=== PATIENT | female | born 1970 ===

== ENCOUNTER 2017-06-04 13:30 | Observation (INO) | payer MEDICAID ==
--- NOTE | 2017-06-04 15:38 | C.PDOC ---
History Of Present Illness 46 year old female presents to the ED for evaluation of dizziness which began around 4 days ago. Patient states the dizziness is worse with movement and is associated with headache, nausea, and vomiting. Patient underwent brain surgery 2 years ago because she had a cyst. Patient denies fever, chills, abdominal pain. Time Seen by Provider: 06/04/17 14:47 Chief Complaint (Nursing): Dizziness/Lightheaded History Per: Patient History/Exam Limitations: no limitations Onset/Duration Of Symptoms: Days (4) Additional History Per: Patient Past Medical History Reviewed: Historical Data, Nursing Documentation, Vital Signs Vital Signs: Last Vital Signs Temp 98.2 F 06/05/17 07:25 Pulse 65 06/05/17 07:25 Resp 18 06/05/17 07:25 BP 95/62 L 06/05/17 07:25 Pulse Ox 97 06/05/17 07:25 - Medical History PMH: Depression, Hyperthyroidism Surgical History: No Surg Hx Family History: States: Unknown Family Hx - Social History Hx Alcohol Use: No Hx Substance Use: No - Immunization History Hx Tetanus Toxoid Vaccination: Yes Hx Influenza Vaccination: Yes Hx Pneumococcal Vaccination: No Review Of Systems Constitutional: Negative for: Fever, Chills Gastrointestinal: Positive for: Nausea, Vomiting. Negative for: Abdominal Pain Neurological: Positive for: Headache, Dizziness Physical Exam - Physical Exam Appears: Non-toxic, No Acute Distress Skin: Normal Color, Warm, Dry Head: Atraumatic, Normacephalic Eye(s): bilateral: Normal Inspection, PERRL, EOMI Oral Mucosa: Moist Neck: Supple Chest: Symmetrical, No Deformity, No Tenderness Cardiovascular: Rhythm Regular, No Murmur Respiratory: Normal Breath Sounds, No Rales, No Rhonchi, No Wheezing Extremity: Normal ROM, Capillary Refill (less than 2 seconds ) Neurological/Psych: Oriented x3, Normal Speech, Normal Cognition ED Course And Treatment - Laboratory Results Result Diagrams: 06/05/17 10:45 06/05/17 10:45 ECG: Interpreted By Me, Viewed By Me ECG Rhythm: Sinus Rhythm Interpretation Of ECG: Normal Sinus Rhythm at rate 60 bpm. Normal intervals. Normal axis. No ST/T wave abnormalities. Rate From EC O2 Sat by Pulse Oximetry: 100 (on RA) Pulse Ox Interpretation: Normal Medical Decision Making Medical Decision Making: Assessment: dizziness Progress: EKG ordered and reviewed. patient remained dizzy after medications. Discussed with pmd and will admit to hospital observation unit. Disposition Discussed With Dr.: Abdelrahman Osullivan Doctor Will See Patient In The: Hospital Counseled Patient/Family Regarding: Studies Performed, Diagnosis - Disposition Disposition: HOSPITALIZED Disposition Time: 19:00 Condition: FAIR - Clinical Impression Clinical Impression: Dizziness - Scribe Statement The provider has reviewed the documentation as recorded by the Scribe (Vicenta Olivas) Provider Attestation: All medical record entries made by the Scribe were at my direction and personally dictated by me. I have reviewed the chart and agree that the record accurately reflects my personal performance of the history, physical exam, medical decision making, and the department course for this patient. I have also personally directed, reviewed, and agree with the discharge instructions and disposition.
[2017-06-04] MEDS ORDERED: Sodium Chloride 0.9% 1,000 ML IV ONE (15:46)
[2017-06-04] MEDS ORDERED: Sodium Chloride 0.9% 1,000 ML ONE (16:02)
[2017-06-04 16:18] LABS: BASO % 0.5 % (0.0-2.0); EOS % 0.5 % (0.0-4.0); HEMOGLOBIN 13.6 g/dL (11.0-16.0); LYMPH # 2.5 K/uL (1.0-4.3); LYMPH % 36.4 % (20.0-40.0); MEAN CELL VOLUME 88.9 fL (81.0-99.0); MEAN CORPUSCULAR HEMOGLOBIN 30.2 pg (27.0-31.0); MEAN PLATELET VOLUME 11.2 fL (7.2-11.7); MONO # 0.4 K/uL (0.0-0.8); MONO % 5.8 % (0.0-10.0); NEUT # 3.8 K/uL (1.8-7.0); NEUT % 56.8 % (50.0-75.0); NRBC % 0.1 % (0.0-2.0); RBC 4.52 Mil/uL (3.80-5.20); RED CELL DISTRIBUTION WIDTH 12.6 % (11.5-14.5); WHITE BLOOD COUNT 6.8 K/uL (4.8-10.8)
[2017-06-04 16:27] LABS: ALB/GLOB RATIO 1.1 (1.0-2.1); ALBUMIN 3.9 g/dL (3.5-5.0); ALT/SGPT 18 U/L (9-52); AST/SGOT 29 U/L (14-36); BLOOD UREA NITROGEN 15 mg/dL (7-17); CALCIUM 9.2 mg/dl (8.6-10.4); GFR AFRICAN-AMERICAN > 60; GFR NON-AFRICAN AMERICAN > 60; LIPASE 96 U/L (23-300)
--- NOTE | 2017-06-04 16:43 | CT ---
PROCEDURE: CT HEAD WITHOUT CONTRAST. HISTORY: AMS COMPARISON: None available. TECHNIQUE: Axial computed tomography images were obtained through the head/brain without intravenous contrast. Radiation dose: Total exam DLP = 805.44 mGy-cm. This CT exam was performed using one or more of the following dose reduction techniques: Automated exposure control, adjustment of the mA and/or kV according to patient size, and/or use of iterative reconstruction technique. FINDINGS: HEMORRHAGE: No intracranial hemorrhage. BRAIN: No mass effect or edema. No atrophy or chronic microvascular ischemic changes. VENTRICLES: Unremarkable. No hydrocephalus. CALVARIUM: No calvarial fracture. High midline frontal craniotomy. PARANASAL SINUSES: Unremarkable as visualized. No significant inflammatory changes. MASTOID AIR CELLS: Unremarkable as visualized. No inflammatory changes. OTHER FINDINGS: None. IMPRESSION: No intracranial mass, hemorrhage or evidence of acute infarct. Status post high frontal midline craniotomy. Correlate with history.
--- NOTE | 2017-06-04 17:19 | RAD ---
PROCEDURE: CHEST RADIOGRAPH, 1 VIEW HISTORY: AMS COMPARISON: None available. FINDINGS: LUNGS: No consolidative infiltrate. The small a 2 to 3 mm nodular opacities over each central lung zones close to the hilar structures likely to represent vessel seen on end. Comparison with any prior outside studies is recommended. Otherwise consider follow-up noncontrast CT chest imaging PLEURA: No pneumothorax or pleural fluid seen. CARDIOVASCULAR: Normal. OSSEOUS STRUCTURES: No significant abnormalities. VISUALIZED UPPER ABDOMEN: Normal. OTHER FINDINGS: None. IMPRESSION: No consolidative infiltrate. Other findings as above
[2017-06-04 18:50] LABS: SQUAMOUS EPITHIAL 1 /hpf (0-5); URINE BACTERIA MANY (<OCC); URINE BILIRUBIN NEGATIVE (NEGATIVE); URINE BLOOD 2+ (NEGATIVE); URINE CLARITY Hazy (Clear); URINE COLOR Yellow (YELLOW); URINE GLUCOSE (UA) NORMAL (Normal); URINE LEUKOCYTE ESTERASE 3+ Leu/uL (Negative); URINE PROTEIN NEGATIVE (NEGATIVE); URINE UROBILINOGEN NORMAL mg/dL (0.2-1.0)
[2017-06-04] MEDS ORDERED: Tmp-Smz 800 mg-160 mg DS Tab PO STA (18:53)
[2017-06-04] MEDS ORDERED: Tmp-Smz 800 mg-160 mg DS Tab ONE (19:22)
[2017-06-05 07:52] VITALS: RESP 18
[2017-06-05] MEDS ORDERED: Iodixanol 320 MG/ML 100 ML BOTTLE IV ONE (08:41)
--- NOTE | 2017-06-05 09:56 | CP.PCM.HP ---
History of Present Illness - History of Present Illness History of Present Illness: 46 year old female evaluated in the [facility] ER for dizziness, fever, vomiting for the past [address] scan of the head was negative. Past history includes a craniatomy 2 years ago. Chest xray reveals scattered opacities in both lungs. The patient was also found to have a urinary tract infection. Present on Admission - Present on Admission Any Indicators Present on Admission: No History of DVT/PE: No History of Uncontrolled Diabetes: No Urinary Catheter: No Decubitus Ulcer Present: No History Surgical Site Infection Following: None Review of Systems - Constitutional Constitutional: Fatigue, Fever, Malaise - Gastrointestinal Gastrointestinal: Vomiting - Neurological Neurological: Dizziness Past Patient History - Past Medical History & Family History Past Medical History?: Yes - Past Social History Smoking Status: Never Smoked Chewing Tobacco Use: No Cigar Use: No Alcohol: None Home Situation {Lives}: With Family - CARDIAC Hx Cardiac Disorders: Yes Other/Comment: palpitations - PULMONARY Hx Respiratory Disorders: No - NEUROLOGICAL Hx Neurological Disorder: Yes Hx Dizziness: Yes Hx Migraine: Yes Hx Vertigo: Yes Other/Comment: Brain tumor Benign - HEENT Hx HEENT Problems: No - RENAL Hx Chronic Kidney Disease: No - ENDOCRINE/METABOLIC Hx Endocrine Disorders: Yes Hx Hyperthyroidism: Yes - HEMATOLOGICAL/ONCOLOGICAL Hx Blood Disorders: No - INTEGUMENTARY Hx Dermatological Problems: No - MUSCULOSKELETAL/RHEUMATOLOGICAL Hx Musculoskeletal Disorders: Yes Hx Falls: Yes Hx Spinal Stenosis: Yes - GASTROINTESTINAL Hx Gastrointestinal Disorders: No - GENITOURINARY/GYNECOLOGICAL Hx Genitourinary Disorders: No - PSYCHIATRIC Hx Psychophysiologic Disorder: Yes Hx Depression: Yes Hx Substance Use: No - SURGICAL HISTORY Hx Surgeries: Yes Hx Hysterectomy: Yes Other/Comment: Lumpectomy - L breast, brain. - ANESTHESIA Hx Anesthesia: Yes Hx Anesthesia Reactions: No Hx Malignant Hyperthermia: No Meds Allergies/Adverse Reactions: Allergies Allergy/AdvReac Type Severity Reaction Status Date / Time No Known Allergies Allergy Unverified 06/04/17 14:02 Physical Exam - Constitutional Appears: Chronically Ill - Head Exam Head Exam: NORMOCEPHALIC - Eye Exam Eye Exam: PERRL Pupil Exam: NORMAL ACCOMODATION - ENT Exam ENT Exam: Normal Exam - Neck Exam Neck exam: Positive for: Normal Inspection - Respiratory Exam Respiratory Exam: NORMAL BREATHING PATTERN - Cardiovascular Exam Cardiovascular Exam: REGULAR RHYTHM - GI/Abdominal Exam GI & Abdominal Exam: Normal Bowel Sounds - Rectal Exam Rectal Exam: Deferred - Exam External exam: NORMAL EXTERNAL EXAM - Back Exam Back exam: NORMAL INSPECTION - Neurological Exam Neurological exam: Normal Gait, Oriented x3 - Psychiatric Exam Psychiatric exam: Depressed - Skin Skin Exam: Dry Results - Vital Signs Recent Vital Signs: Last Vital Signs Temp 98.2 F 06/05/17 07:25 Pulse 65 06/05/17 07:25 Resp 18 06/05/17 07:25 BP 95/62 L 06/05/17 07:25 Pulse Ox 97 06/05/17 07:25 - Labs Result Diagrams: 06/04/17 16:10 06/04/17 16:10 Labs: Laboratory Results - last 24 hr 06/04/17 06/04/17 06/04/17 14:43 16:10 16:10 WBC 6.8 RBC 4.52 Hgb 13.6 Hct 40.1 MCV 88.9 MCH 30.2 MCHC 34.0 RDW 12.6 Plt Count 146 MPV 11.2 Neut % (Auto) 56.8 Lymph % (Auto) 36.4 [place] % (Auto) 5.8 Eos % (Auto) 0.5 Baso % (Auto) 0.5 Neut # (Auto) 3.8 Lymph # (Auto) 2.5 [place] # (Auto) 0.4 Eos # (Auto) 0.0 Baso # (Auto) 0.0 Sodium 145 Potassium 3.9 Chloride 102 Carbon Dioxide 28 Anion Gap 20 BUN 15 Creatinine 0.6 L Est GFR ( Amer) > 60 Est GFR (Non-Af Amer) > 60 POC Glucose (mg/dL) 87 Random Glucose 80 Calcium 9.2 Total Bilirubin 0.5 AST 29 ALT 18 Alkaline Phosphatase 65 Troponin I < 0.0120 Total Protein 7.3 Albumin 3.9 Globulin 3.5 Albumin/Globulin Ratio 1.1 Lipase 96 Urine Color Urine Clarity Urine pH Ur Specific [place] Urine Protein Urine Glucose (UA) Urine Ketones Urine Blood Urine Nitrate Urine Bilirubin Urine Urobilinogen Ur Leukocyte Esterase Urine WBC (Auto) Urine RBC (Auto) Ur Squamous Epith Cells Urine Bacteria 06/04/17 18:40 WBC RBC Hgb Hct MCV MCH MCHC RDW Plt Count MPV Neut % (Auto) Lymph % (Auto) [place] % (Auto) Eos % (Auto) Baso % (Auto) Neut # (Auto) Lymph # (Auto) [place] # (Auto) Eos # (Auto) Baso # (Auto) Sodium Potassium Chloride Carbon Dioxide Anion Gap BUN Creatinine Est GFR ( Amer) Est GFR (Non-Af Amer) POC Glucose (mg/dL) Random Glucose Calcium Total Bilirubin AST ALT Alkaline Phosphatase Troponin I Total Protein Albumin Globulin Albumin/Globulin Ratio Lipase Urine Color Yellow Urine Clarity Hazy Urine pH 5.0 Ur Specific [place] 1.020 Urine Protein Negative Urine Glucose (UA) Normal Urine Ketones Negative Urine Blood 2+ H Urine Nitrate Negative Urine Bilirubin Negative Urine Urobilinogen Normal Ur Leukocyte Esterase 3+ H Urine WBC (Auto) 27 H Urine RBC (Auto) 12 H Ur Squamous Epith Cells 1 Urine Bacteria Many H Assessment & Plan (1) Urinary tract infection Status: Acute (2) Opacities of both lungs present on chest x-ray Status: Acute (3) Status post craniotomy Status: Acute (4) Dizziness Status: Acute
--- NOTE | 2017-06-05 11:01 | CT ---
PROCEDURE: CT Angiography of the neck neck and brain HISTORY: Dated 06/05/2017 intractable vertigo COMPARISON: No prior study available comparison TECHNIQUE: Contiguous helical/transaxial images of the neck were obtained from the level of the skull-base to the superior mediastinum in the arteriographic phase of enhancement. Coronal and sagittal reformats or also generated. IV contrast dose: 100 cc Visipaque 320 Radiation Dose - DLP: 404.42 mGy-cm This CT exam was performed using one or more of the following dose reduction techniques: Automated exposure control, adjustment of the mA and/or kV according to patient size, and/or use of iterative reconstruction technique. FINDINGS: Visualized portions of the aortic arch and the origins of the great vessels are well opacified with no significant atherosclerotic disease. The common carotid arteries comment carotid bifurcations and internal carotid arteries are widely patent with no evidence of occlusions or significant stenosis. No significant plaque changes are identified. Distal internal carotid arteries including the petrous cavernous and supraclinoid segments widely patent. The vertebral arteries appear relatively symmetric and are patent throughout as well with no evidence of occlusion or significant stenosis. The basilar artery patent. There is mild asymmetry of the A1 segments,, right-sided which is slightly larger in caliber more dominant than the left felt to represent an anatomic variation. The remaining visualized major branches of the [place] are patent with no evidence of occlusion. . Distal on cerebral branch vessels are symmetric. No evidence of large aneurysm nor vascular malformation. IMPRESSION: No evidence of occlusion or significant stenosis. No evidence of large aneurysm nor vascular malformation.
[2017-06-05 11:10] LABS: BLOOD UREA NITROGEN 12 mg/dL (7-17); CALCIUM 9.2 mg/dl (8.6-10.4); GFR AFRICAN-AMERICAN > 60; GFR NON-AFRICAN AMERICAN > 60
[2017-06-05 11:16] LABS: BASO % 0.5 % (0.0-2.0); EOS # 0.1 K/uL (0.0-0.7); EOS % 0.9 % (0.0-4.0); HEMOGLOBIN 13.7 g/dL (11.0-16.0); LYMPH # 2.3 K/uL (1.0-4.3); MEAN CORPUSCULAR HEMOGLOBIN 30.2 pg (27.0-31.0); MEAN CORPUSCULAR HGB CONC 33.9 g/dL (33.0-37.0); MONO # 0.4 K/uL (0.0-0.8); MONO % 6.3 % (0.0-10.0); NEUT # 4.2 K/uL (1.8-7.0); NEUT % 59.3 % (50.0-75.0); RBC 4.53 Mil/uL (3.80-5.20); RED CELL DISTRIBUTION WIDTH 12.8 % (11.5-14.5)
--- NOTE | 2017-06-05 12:29 | CT ---
PROCEDURE: CT chest dated 06/05/2017 HISTORY: Opacities in both lungs COMPARISON: Comparison made with prior chest radiograph dated 06/04/2017. TECHNIQUE: Contiguous helical/transaxial images were obtained through the chest following intravenous contrast enhancement. Sagittal and coronal reconstructions were performed. Note that 100 cc of Visipaque 320 contrast material was injected initially for concomitant CTA study performed immediately prior to the CT chest. . Note that study is suboptimal due to diminished contrast enhancement due to delayed imaging of the chest as CTA of the neck and brain performed initially Radiation dose (DLP): 171.3 mGy-cm. This CT exam was performed using one or more of the following dose reduction techniques: Automated exposure control, adjustment of the mA and/or kV according to patient size, and/or use of iterative reconstruction technique. . FINDINGS: LUNGS: Lung castaneda are clear without focal consolidation however there appears to be some minimal passive/ dependent type atelectasis both lung zones most notably in the lung bases. . No parenchymal masses or obvious nodules are identified. MEDIASTINUM: Heart size within range of normal. No significant pericardial effusion. . Ascending thoracic aorta measures approximately 2.9 cm and descending thoracic aorta measures approximately 2.2 cm. Pulmonary trunk measures approximately 3.0 cm. No significant mediastinal adenopathy. No significant hilar adenopathy is limited due to the lack of circulating intravenous contrast material. There are small bilateral axillary lymph nodes, the largest on lymph node in the left axilla measures approximately 14 mm though the exhibits a fatty center. PLEURA: No evidence of pneumothorax or significant effusion. BONES: No fracture. No destructive lesion. UPPER ABDOMEN: Grossly unremarkable. OTHER FINDINGS: None. IMPRESSION: No evidence of acute infiltrates however there appears to be some very minimal passive/dependent type atelectasis both posterior lung zones most notably in the lung bases.
[2017-06-05] MEDS ORDERED: Tmp-Smz 800 mg-160 mg DS Tab PO SCH (14:00)
[2017-06-05 14:19] LABS: FREE T4 0.74 ng/dL (0.78-2.19)
[2017-06-05 15:28] VITALS: BP 102/57; PULSE 72; TEMP 98.3; O2SAT 98
--- NOTE | 2017-06-05 16:40 | CP.PCM.PN ---
Subjective - Date & Time of Evaluation Date of Evaluation: 06/05/17 Time of Evaluation: 16:00 - Subjective Subjective: Patient seen today, denies any dizziness, headache, palpitation N/V/D No overnight events reported by RN Objective - Vital Signs/Intake and Output Vital Signs (last 24 hours): Temp Pulse Resp BP Pulse Ox 98.3 F 72 18 102/57 L 98 06/05/17 15:27 06/05/17 15:27 06/05/17 15:27 06/05/17 15:27 06/05/17 15:27 Intake and Output: 06/05/17 06/05/17 06:59 18:59 Intake Total 150 Balance 150 - Medications Medications: Current Medications Atenolol (Tenormin) 12.5 mg PO DAILY [facility] Clonazepam (Klonopin) 0.5 mg PO DAILY [facility] Last Admin: 06/05/17 09:27 Dose: 0.5 mg Methimazole (Tapazole) 10 mg PO BID [facility] Last Admin: 06/05/17 09:27 Dose: 10 mg Pseudoephedrine HCl (Sudafed Tab) 30 mg PO Q6 [facility] Last Admin: 06/05/17 06:37 Dose: 30 mg Tramadol HCl (Ultram) 50 mg PO Q6 PRN PRN Reason: Pain, moderate (4-7) Trimethoprim/Sulfamethoxazole (Bactrim Ds Tab) 1 tab PO Q12H [facility] PRN Reason: Protocol Zolpidem Tartrate (Ambien) 5 mg PO HS [facility] Last Admin: 06/04/17 22:10 Dose: 5 mg - Labs Labs: 06/05/17 10:45 06/05/17 10:45 Assessment and Plan - Assessment and Plan (Free Text) Assessment: A/P 46 yr old female admitted with dizziness/ UTI CT HEAD -No intracranial mass, hemorrhage or evidence of acute infarct. Status post high frontal midline craniotomy. Correlate with history. Neurology Dr. Hammond seen today and cleared for neurology standpoint D/w Dr. Osullivan , stable for discharge home today and f/u with Dr. Osullivan office and neurologist office Discharge plan discussed with patient who understands and agrees with plan RX given
--- NOTE | 2017-06-05 22:06 | CP.PCM.CON ---
History of Present Illness - History of Present Illness History of Present Illness: 46 yr old woman with a pmh of brain cyst s/p evacuation many years ago by , presents with one week history of diziness made worse by position, associated with vomiting and relieved by rest. MIss cristobal denies any head trauma, mva, or any new medications, and has never had a spell like this before. SHe is now feeling better and has a normal neurological examination. PMH/PSH: None FH/SH: no tobacco, no etoh. All: nkda On exam: Normal neurological exam. No diplopia, no nystagmus, no meningismus. The patient is very dizzy and cannot walk without holding on to miles. +2 dtr ul and ll bl. toes downgoing no clonus. Past Patient History - Past Medical History & Family History Past Medical History?: Yes - Past Social History Smoking Status: Never Smoked Chewing Tobacco Use: No Cigar Use: No Alcohol: None Home Situation {Lives}: With Family - CARDIAC Hx Cardiac Disorders: Yes Other/Comment: palpitations - PULMONARY Hx Respiratory Disorders: No - NEUROLOGICAL Hx Neurological Disorder: Yes Hx Dizziness: Yes Hx Migraine: Yes Hx Vertigo: Yes Other/Comment: Brain tumor Benign - HEENT Hx HEENT Problems: No - RENAL Hx Chronic Kidney Disease: No - ENDOCRINE/METABOLIC Hx Hyperthyroidism: Yes - HEMATOLOGICAL/ONCOLOGICAL Hx Blood Disorders: No - INTEGUMENTARY Hx Dermatological Problems: No - MUSCULOSKELETAL/RHEUMATOLOGICAL Hx Musculoskeletal Disorders: Yes Hx Falls: Yes Hx Spinal Stenosis: Yes - GASTROINTESTINAL Hx Gastrointestinal Disorders: No - GENITOURINARY/GYNECOLOGICAL Hx Genitourinary Disorders: No - PSYCHIATRIC Hx Depression: Yes Hx Substance Use: No - SURGICAL HISTORY Hx Surgeries: Yes Hx Hysterectomy: Yes Other/Comment: Lumpectomy - L breast, brain. - ANESTHESIA Hx Anesthesia: Yes Hx Anesthesia Reactions: No Hx Malignant Hyperthermia: No Meds Allergies/Adverse Reactions: Allergies Allergy/AdvReac Type Severity Reaction Status Date / Time No Known Allergies Allergy Unverified 06/04/17 14:02 - Medications Medications: Current Medications Atenolol (Tenormin) 12.5 mg PO DAILY [facility] Clonazepam (Klonopin) 0.5 mg PO DAILY [facility] Last Admin: 06/05/17 09:27 Dose: 0.5 mg Methimazole (Tapazole) 10 mg PO BID [facility] Last Admin: 06/05/17 09:27 Dose: 10 mg Pseudoephedrine HCl (Sudafed Tab) 30 mg PO Q6 [facility] Last Admin: 06/05/17 06:37 Dose: 30 mg Tramadol HCl (Ultram) 50 mg PO Q6 PRN PRN Reason: Pain, moderate (4-7) Trimethoprim/Sulfamethoxazole (Bactrim Ds Tab) 1 tab PO Q12H [facility] PRN Reason: Protocol Zolpidem Tartrate (Ambien) 5 mg PO HS [facility] Last Admin: 06/04/17 22:10 Dose: 5 mg Results - Vital Signs Recent Vital Signs: Last Vital Signs Temp 98.3 F 06/05/17 15:27 Pulse 72 06/05/17 15:27 Resp 18 06/05/17 15:27 BP 102/57 L 06/05/17 15:27 Pulse Ox 98 06/05/17 15:27 - Labs Result Diagrams: 06/05/17 10:45 06/05/17 10:45 Labs: Laboratory Results - last 24 hr 06/04/17 06/04/17 06/04/17 16:10 16:10 18:40 WBC 6.8 RBC 4.52 Hgb 13.6 Hct 40.1 MCV 88.9 MCH 30.2 MCHC 34.0 RDW 12.6 Plt Count 146 MPV 11.2 Neut % (Auto) 56.8 Lymph % (Auto) 36.4 [place] % (Auto) 5.8 Eos % (Auto) 0.5 Baso % (Auto) 0.5 Neut # (Auto) 3.8 Lymph # (Auto) 2.5 [place] # (Auto) 0.4 Eos # (Auto) 0.0 Baso # (Auto) 0.0 Sodium 145 Potassium 3.9 Chloride 102 Carbon Dioxide 28 Anion Gap 20 BUN 15 Creatinine 0.6 L Est GFR ( Amer) > 60 Est GFR (Non-Af Amer) > 60 Random Glucose 80 Calcium 9.2 Total Bilirubin 0.5 AST 29 ALT 18 Alkaline Phosphatase 65 Troponin I < 0.0120 Total Protein 7.3 Albumin 3.9 Globulin 3.5 Albumin/Globulin Ratio 1.1 Lipase 96 Free T4 TSH 3rd Generation Urine Color Yellow Urine Clarity Hazy Urine pH 5.0 Ur Specific [place] 1.020 Urine Protein Negative Urine Glucose (UA) Normal Urine Ketones Negative Urine Blood 2+ H Urine Nitrate Negative Urine Bilirubin Negative Urine Urobilinogen Normal Ur Leukocyte Esterase 3+ H Urine WBC (Auto) 27 H Urine RBC (Auto) 12 H Ur Squamous Epith Cells 1 Urine Bacteria Many H 06/05/17 06/05/17 06/05/17 10:45 10:45 13:40 WBC 7.0 RBC 4.53 Hgb 13.7 Hct 40.3 MCV 89.0 MCH 30.2 MCHC 33.9 RDW 12.8 Plt Count 135 MPV 11.0 Neut % (Auto) 59.3 Lymph % (Auto) 33.0 [place] % (Auto) 6.3 Eos % (Auto) 0.9 Baso % (Auto) 0.5 Neut # (Auto) 4.2 Lymph # (Auto) 2.3 [place] # (Auto) 0.4 Eos # (Auto) 0.1 Baso # (Auto) 0.0 Sodium 140 Potassium 4.0 Chloride 102 Carbon Dioxide 26 Anion Gap 16 BUN 12 Creatinine 0.7 Est GFR ( Amer) > 60 Est GFR (Non-Af Amer) > 60 Random Glucose 79 Calcium 9.2 Total Bilirubin AST ALT Alkaline Phosphatase Troponin I Total Protein Albumin Globulin Albumin/Globulin Ratio Lipase Free T4 0.74 L TSH 3rd Generation 0.61 Urine Color Urine Clarity Urine pH Ur Specific [place] Urine Protein Urine Glucose (UA) Urine Ketones Urine Blood Urine Nitrate Urine Bilirubin Urine Urobilinogen Ur Leukocyte Esterase Urine WBC (Auto) Urine RBC (Auto) Ur Squamous Epith Cells Urine Bacteria
--- NOTE | 2017-06-05 23:34 | CP.PCM.PN ---
Subjective - Date & Time of Evaluation Date of Evaluation: 06/05/17 Time of Evaluation: 13:25 - Subjective Subjective: Patient had CT scan of the head which was negative. Patient evaluated by neurology. No acute findings. CT scan of the chest negative. Antibiotic ordered for urinary tract infection. Outpatient follow up in one week. Objective - Vital Signs/Intake and Output Vital Signs (last 24 hours): Temp Pulse Resp BP Pulse Ox 98.3 F 72 18 102/57 L 98 06/05/17 15:27 06/05/17 15:27 06/05/17 15:27 06/05/17 15:27 06/05/17 15:27 - Labs Labs: 06/05/17 10:45 06/05/17 10:45 - Constitutional Appears: No Acute Distress - Head Exam Head Exam: NORMAL INSPECTION - Eye Exam Eye Exam: Normal appearance Pupil Exam: NORMAL ACCOMODATION - ENT Exam ENT Exam: Normal Exam - Neck Exam Neck Exam: Normal Inspection - Respiratory Exam Respiratory Exam: NORMAL BREATHING PATTERN - Cardiovascular Exam Cardiovascular Exam: REGULAR RHYTHM - GI/Abdominal Exam GI & Abdominal Exam: Normal Bowel Sounds - Rectal Exam Rectal Exam: NORMAL INSPECTION - Exam Exam: NORMAL INSPECTION - Extremities Exam Extremities Exam: Normal Inspection - Back Exam Back Exam: NORMAL INSPECTION - Neurological Exam Neurological Exam: Oriented x3 - Psychiatric Exam Psychiatric exam: Depressed - Skin Skin Exam: Dry Assessment and Plan (1) Urinary tract infection Status: Acute (2) Opacities of both lungs present on chest x-ray Status: Acute (3) Status post craniotomy Status: Acute (4) Dizziness Status: Acute
--- NOTE | 2017-06-07 10:36 | CARD ---
APPROVED REPORT EKG Measurement Heart [id number] <Conclusion> Normal sinus rhythm Normal ECG
== END 2017-06-05 17:40 | disposition home or self-care (01) ==
LOC: C.ER 13:30 → C.9E 18:59 → C.6T 18:59
PROVIDERS: ADMIT Internal Medicine; ATTEND Internal Medicine
DX: N39.0 Urinary tract infection, site not specified (principal); B96.1 Klebsiella pneumoniae [K. pneumoniae] as the cause of diseases classified elsewhere; R42 Dizziness and giddiness; R91.8 Other nonspecific abnormal finding of lung field; E05.90 Thyrotoxicosis, unspecified without thyrotoxic crisis or storm
CPT/HCPCS: 36415; 70450; 70496; 70498; 71045; 71250; 80048; 80053; 81001; 82948; 83690; 84439; 84443; 84484; 85025; 87086; 87181; 96361; 96374; 99285; G0378; J2405; J7040; Q9967